=== PATIENT | female | born 1970 ===

== ENCOUNTER 2021-08-17 10:42 | Outpatient (CLI) | payer BC ==
[2021-08-17] MEDS ORDERED: Magnevist 469MG/ML 20 ML VIAL ONE (10:49)
== END 2021-08-17 10:43 | disposition home or self-care (01) ==
LOC: BICMRI 10:42
PROVIDERS: ATTEND Otolaryngology Plastic Surgery within the Head & Neck
DX: H91.21 Sudden idiopathic hearing loss, right ear (principal)
CPT/HCPCS: 70553; A9579